=== PATIENT | male | born 1990 | race Caucasian/White ===

== ENCOUNTER 2022-11-03 19:54 | Emergency (ER) | payer BC | END 2022-11-03 21:56 | disposition home or self-care (01) | LOC: MW.ED 19:54 | DX: S22.41XA Multiple fractures of ribs, right side, initial encounter for closed fracture (principal); W18.30XA Fall on same level, unspecified, initial encounter; Y99.0 Civilian activity done for income or pay | CPT/HCPCS: 71101-26-RT; 71101-RT; 99283 ==